=== PATIENT | female | born 1995 | race Caucasian/White ===

== ENCOUNTER 2024-03-15 13:32 | Emergency (ER) | payer OTHER, SELFPAY ==
--- NOTE | ~2024-03-15 | CT_ITS ---
EXAMINATION: CT abdomen pelvis w con DATE: 03/15/2024 14:37 INDICATION: Right lower quadrant abdominal pain and nausea TECHNIQUE: Computed tomography (CT) of the abdomen and pelvis was performed with 100 mL Omnipaque-350 intravenous contrast. Automated exposure control and iterative reconstruction technique were employe d. The dose-length product was 1655.49 mGy-cm. COMPARISON: None FINDINGS: 7-8 mm right upper lobe nodule along the minor fissure. There is dependent atelectasis in bilateral l ower lobes. Heart size is normal. No pericardial or pleural effusion. Diffuse hepatic steatosis with focal sparing along the gallbladder fossa. Gallbladder, spleen, pancreas, bilateral adrenal glands an d kidneys are normal. Normal appendix. Bowels are unremarkable with no evident wall thickening or obs truction. 2 cm left adnexal cyst/follicle. Bladder, anteverted uterus and bilateral adnexa are otherw ise unremarkable. No free intraperitoneal gas or fluid. No pathologically enlarged abdominal or pelvi c lymphadenopathy. Mild thoracolumbar levocurvature with mild and thoracic and lumbar spondylosis. IMPRESSION: 1. No acute intra-abdominal/pelvic process. Specifically the appendix is normal. 2. Diffuse hepatic steatosis. 3. 7-8 mm right upper lobe pulmonary nodule. Recommend 6-12 month follow-up low-dose noncontrast ches t CT. Reviewed, dictated and finalized at location A. IMPRESSION: 1. No acute intra-abdominal/pelvic process. Specifically the appendix is normal . 2. Diffuse hepatic steatosis. 3. 7-8 mm right upper lobe pulmonary nodule. Recommend 6-12 month follow-up low -dose noncontrast chest CT.
[2024-03-15 13:34] VITALS: BP 148/75; PULSE 95; RESP 18; TEMP 36.6; O2SAT 95
[2024-03-15 13:43] VITALS: BP 142/89; PULSE 96; RESP 18; TEMP 36.6; O2SAT 97
[2024-03-15 14:03] LABS: Basophils Absolute Auto 0.1 K/mm3 (0.0-0.1); Basophils Percent Auto 0.9 % (0.2-1.2); Eosinophils Absolute Auto 0.6 K/mm3 (0-0.3); Eosinophils Percent Auto 4.7 % (0-4.4); Hematocrit 43.9 % (37.0-47.0); Hemoglobin 14.2 g/dL (12.0-15.0); Immature Granulocyte Absolute 0.05 K/mm3 (0.00-0.031); Immature Granulocyte Percent A 0.4 % (0-0.5); Lymphocytes Absolute Auto 4.23 K/mm3 (0.9-3.2); Lymphocytes Percent Auto 32.9 % (18.3-44.2); Mean Corpuscular HGB Conc 32.3 g/dl (32-36); Mean Corpuscular Hemoglobin 28.7 pg (26-34); Mean Corpuscular Volume 88.7 fl (80-100); Mean Platelet Volume 9.2 fl (7.4-10.4); Monocytes Absolute Auto 0.9 K/mm3 (0.1-0.6); Monocytes Percent Auto 6.6 % (2.6-8.5); Neutrophils Percent Auto 54.5 % (45.5-73.1); Platelet Count Result 343 k/mm3 (150-375); Red Blood Count 4.95 M/mm3 (4.2-5.4); Red Cell Distribution Width 13.2 % (11.5-14.5); White Blood Count 12.9 K/mm3 (4.5-10.0)
[2024-03-15 14:16] LABS: Alanine Aminotransferase 35 U/L (6-35); Albumin Level 4.5 g/dL (3.5-5.1); Alkaline Phosphatase 86 U/L (38-126); Anion Gap 9 mmol/L (4-12); Aspartate Amino Transferase 22 U/L (14-36); Bilirubin,Total 0.4 mg/dL (0.2-1.3); Blood Urea Nitrogen 13 mg/dL (7-17); Calcium 8.8 mg/dL (8.4-10.2); Carbon Dioxide 26 mmol/L (22-30); Chloride 101 mmol/L (98-107); Estimated CRCL calculation 154 ml/min; Estimated Glomerular Filt Rate > 60; Glucose 277 mg/dL (65-110); Lipase 68 U/L (23-300); Potassium 3.8 mmol/L (3.4-5.0); Sodium 136 mmol/L (137-145)
[2024-03-15] MEDS: MORPHINE SULFATE (*CRX) 4 MG/ML INJ IV PUSH (14:22)
[2024-03-15] MEDS: ONDANSETRON INJ 4 MG/2 ML VIAL IV PUSH (14:22)
[2024-03-15 14:39] LABS: Appearance Urine Clear (Clear); Bacteria Urine 3+ /hpf; Bilirubin Urine Negative (Negative); Blood Urine Negative (Negative); Color Urine Yellow (Yellow); Glucose Urine UA 3+ mg/dL (Negative); Ketones Urine Trace mg/dL (Negative); Leukocyte Esterase Ur Negative LEU/UL (Negative); Need Manual Microscopic Reviewed; Nitrate Urine Negative (Negative); Non Pathogenic Casts 0-2; Protein Urine 1+ mg/dL (Negative); Squamous Epithelial Cell Urine Occasional /hpf (Few); Urobilinogen Urine 0.2 mg/dL (<2.0)
[2024-03-15 14:41] LABS: Add Urine Microscopic? YES; Specific Grav Ur 1.035 (1.001-1.035)
--- NOTE | 2024-03-15 16:07 | ED.GENADULT ---
HPI - General Adult General Chief complaint: Abdominal Pain Stated complaint: right lower abd pain x3 days Time Seen by Provider: 03/15/24 13:45 History of Present Illness HPI narrative: Patient is a 28-year-old female who presents ER with right lower quadrant abdominal pain. Worsening over last 3 days. No radiation. Associated with some urinary frequency. Has had this intermittently in the past. No vaginal discharge. Denies fevers or chills or sweats. No chest pain or chest pressure. No alleviating factors. Worse with movement. Related Data Allergies Allergy/AdvReac Type Severity Reaction Status Date / Time No Known Allergies Allergy Mild Verified 03/15/24 14:08 Review of Systems Review of Systems: All systems reviewed & are unremarkable except as noted in HPI and below Constitutional: Constitutional: Reports no additional constitutional complaints ENT: Reports system reviewed and no additional complaints, except as documented Cardiovascular: Cardiovascular: Reports no additional cardiovascular complaints Respiratory: Respiratory: Reports no additional respiratory complaints Gastrointestinal: Gastrointestinal: Reports abdominal pain, Denies diarrhea, Denies nausea and Denies vomiting Genitourinary: Genitourinary: Reports nocturia, Reports dysuria and Denies flank pain PMF Past Medical History Medical History (Updated 03/15/24 @ 16:13 by Layo Spaulding MD) Diabetes Surgical History Surgical History (Updated 03/15/24 @ 16:10 by Layo Spaulding MD) No history of previous surgery Exam Narrative: GENERAL: Well-appearing, morbidly obese, and in no acute distress. HEAD: Normocephalic, atraumatic. ENT: Mucous membranes moist. CHEST: Clear to auscultation. No respiratory distress. HEART: Regular rate and rhythm. Normal peripheral pulses. ABDOMEN: Soft, moderate tenderness right lower quadrant without guarding, nondistended. EXTREMITIES: Normal range of motion. No edema. SKIN: Warm, dry, no rash. NEURO: Alert and oriented x3. PSYCH: Normal mood and affect. Course Course Emergency Course: Informed of results. labs and imaging indicative of lung nodule and UTI. D/c home with abx. Vital Signs Vital signs: Vital Signs Temperature 97.9 F 03/15/24 13:34 Pulse Rate 95 03/15/24 13:34 Respiratory Rate 18 03/15/24 13:34 Blood Pressure 148/75 H 03/15/24 13:34 Pulse Oximetry 95 03/15/24 13:34 Oxygen Delivery Room Air 03/15/24 13:34 Temperature 97.9 F 03/15/24 13:43 Pulse Rate 88 03/15/24 16:22 Respiratory Rate 16 03/15/24 16:22 Blood Pressure 139/86 03/15/24 16:22 Pulse Oximetry 99 03/15/24 16:22 Oxygen Delivery Room Air 03/15/24 13:34 Medical Decision Making Vital Signs Vital Signs: Vital Signs Temperature 97.9 F 03/15/24 13:34 Pulse Rate 95 03/15/24 13:34 Respiratory Rate 18 03/15/24 13:34 Blood Pressure 148/75 H 03/15/24 13:34 Pulse Oximetry 95 03/15/24 13:34 Oxygen Delivery Room Air 03/15/24 13:34 Temperature 97.9 F 03/15/24 13:43 Pulse Rate 88 03/15/24 16:22 Respiratory Rate 16 03/15/24 16:22 Blood Pressure 139/86 03/15/24 16:22 Pulse Oximetry 99 03/15/24 16:22 Oxygen Delivery Room Air 03/15/24 13:34 Lab Data 03/15/24 13:51 03/15/24 13:51 Labs: Lab Results 03/15/24 Range/Units 13:51 WBC 12.9 H (4.5-10.0) K/mm3 RBC 4.95 (4.2-5.4) M/mm3 Hgb 14.2 (12.0-15.0) g/dL Hct 43.9 (37.0-47.0) % MCV 88.7 (80-100) fl MCH 28.7 (26-34) pg MCHC 32.3 (32-36) g/dl RDW 13.2 (11.5-14.5) % Plt Count 343 (150-375) k/mm3 MPV 9.2 (7.4-10.4) fl Immature Gran % (Auto) 0.4 (0-0.5) % Neut % (Auto) 54.5 (45.5-73.1) % Lymph % (Auto) 32.9 (18.3-44.2) % Hancock % (Auto) 6.6 (2.6-8.5) % Eos % (Auto) 4.7 H (0-4.4) % Baso % (Auto) 0.9 (0.2-1.2) % Lymph # (Auto) 4.23 H (0.9-3.2) K/mm3 Hancock # (Auto) 0.9 H (0.1-0.6) K/mm3
[2024-03-15 16:22] VITALS: BP 139/86; PULSE 88; RESP 16; O2SAT 99
== END 2024-03-15 16:25 | disposition home or self-care (01) ==
PROVIDERS: Emergency Provider Emergency Medicine
DX: N39.0 Urinary tract infection, site not specified (principal); R91.1 Solitary pulmonary nodule; E11.9 Type 2 diabetes mellitus without complications
CPT/HCPCS: 36415; 74177; 80053; 81001; 81025; 83690; 85025; 87077; 87086; 87088; 96374; 96375; 99284; J2270; J2405; Q9967